=== PATIENT | female | born 1975 | race African-American/Black ===

== ENCOUNTER 2016-06-09 20:22 | Emergency (ER) | payer OTHER, SELFPAY ==
[2016-06-09] MEDS ORDERED: Ibuprofen 800 MG TAB ONE (20:51)
== END 2016-06-09 21:23 | disposition home or self-care (01) ==
LOC: NAV ERS 20:22
DX: S16.1XXA Strain of muscle, fascia and tendon at neck level, initial encounter (principal); S29.011A Strain of muscle and tendon of front wall of thorax, initial encounter; S29.012A Strain of muscle and tendon of back wall of thorax, initial encounter; V89.2XXA Person injured in unspecified motor-vehicle accident, traffic, initial encounter
CPT/HCPCS: 99283